=== PATIENT | male | born 1980 | race Caucasian/White ===

== ENCOUNTER 2020-06-06 12:36 | Emergency (ER) | payer BC, SELFPAY ==
[2020-06-06 12:43] VITALS: BP 159/101; PULSE 75; RESP 18; TEMP 36.8; O2SAT 99; BMI 33.2
--- NOTE | 2020-06-06 13:59 | ED.URI ---
HPI - URI/Sore Throat General Chief Complaint: Upper Respiratory Symptoms Stated Complaint: covid symptoms Time Seen by Provider: 06/06/20 13:11 History of Present Illness HPI Narrative: Complains of cough and runny nose for 1 day, no chest pain no shortness of breath no difficulty breathing, no fever or chills Related Data Allergies Allergy/AdvReac Type Severity Reaction Status Date / Time No Known Allergies Allergy Verified 06/06/20 12:43 [No Known Allergies*] Review of Systems Review of Systems: Positive for cough and runny nose Negatives are no dizziness no weakness no confusion no fever no chills no headache no neck pain no chest pain no shortness of breath no abdominal pain no nausea vomiting or diarrhea no skin rash no numbness or weakness PMFSH Past Medical History PMFSH Narrative: Patient smokes a pack a day Medical History Obese Opiate dependence Smoker Social History Social History Advance Directives: Yes Advance Directives Information Provided: Yes Advance Directives on File: No Physical Exam Vital Signs: Vital Signs: Last Vital Signs Temp 98.2 F 06/06/20 12:43 Pulse 75 06/06/20 12:43 Resp 18 06/06/20 12:43 BP 159/101 H 06/06/20 12:43 Pulse Ox 99 06/06/20 12:43 Body Mass Index 33.2 Elevated blood pressures noted Patient is A&O x3, comfortable relaxed and cooperative Head is normocephalic atraumatic The eyes no redness no discharge The neck is supple The chest had wheezing sounds on the right side only, left side of the chest was clear Heart rate and rhythm regular no murmur Abdomen soft nontender Extremities no edema no rash no calf tenderness no swelling Skin no rashes Neuro no focal deficit Course Course Course Narrative: COVID test and chest x-ray were ordered but not done as patient eloped and I tried to call him but knowing picked up and patient eloped from the ER Discharge Plan Discharge Patient Disposition: Elopement Interventions: ED Discharge Assessment Last Done: 06/06/20 14:26
--- NOTE | 2020-06-06 14:13 | PC.NURSE ---
Pt found to have eloped.
== END 2020-06-06 14:28 | disposition left against medical advice (07) ==
PROVIDERS: Emergency Provider Emergency Medicine
DX: R05 Cough (principal); F11.20 Opioid dependence, uncomplicated; F17.200 Nicotine dependence, unspecified, uncomplicated
CPT/HCPCS: 99283